=== PATIENT | male | born 1975 | race Caucasian/White ===

== ENCOUNTER 2021-04-23 14:49 | Emergency (ER) | payer OTHER ==
[~2021-04-23] VITALS: Ht 170.2 cm; Wt 78.0 kg
[~2021-04-23 14:49] MED LIST: ALLEGRA30 MG PO; AMOXICILLIN 50500 M1 PO
[2021-04-23 15:33] LABS: ABSOLUTE EOSINOPHILS 0.1 thou/uL (0.0-0.7); ABSOLUTE LYMPHOCYTES 0.9 thou/uL (0.8-5.3); ABSOLUTE MONOCYTES 0.3 thou/uL (0.0-1.2); ABSOLUTE NEUTROPHILS 2.3 thou/uL (1.6-8.1); BASOPHILS 0.8 %; EOSINOPHILS 1.7 %; HEMATOCRIT 46.4 % (42.0-52.0); HEMOGLOBIN 15.9 gm/dL (14.0-18.0); LYMPHOCYTES 25.3 %; MCH 29.8 pg (26.0-34.0); MCHC 34.1 g/dL (28.0-37.0); MCV 87.3 fL (80.0-100.0); MONOCYTES 7.2 %; NUCLEATED RBCS 0 /100WBC; PLATELET COUNT* 147 thou/uL (150-400); RBC 5.32 mil/uL (4.50-6.00); RDW-CV 13.5 % (10.5-14.5); WBC 3.6 thou/uL (4.0-11.0)
[2021-04-23 15:37] LABS: CALCIUM 8.2 mg/dL (8.5-10.1); POTASSIUM 3.6 mmol/L (3.5-5.1)
[2021-04-23 15:47] LABS: ALBUMIN 3.6 g/dL (3.4-5.0); MAGNESIUM 2.2 mg/dL (1.8-2.4); TOTAL BILIRUBIN 0.7 mg/dL (<0.1-1.0); TOTAL PROTEIN 7.2 g/dL (6.4-8.2)
[2021-04-23] MEDS ORDERED: FLEXERIL PO (17:58)
[2021-04-23] MEDS ORDERED: VENTOLIN HFA 1818 GM INH (17:59)
[2021-04-23 18:25] VITALS: BP 136/85
--- NOTE | 2021-04-24 09:04 | EKG ---
[place] [address] ELECTROCARDIOGRAM REPORT Name: IVA URBAN Room: [facility]#: [id number] Admission: 04/23/21 Attend Phys: Discharge: 04/23/21 Date of : 75 Date of Service: 04/23/21 1500 Report #: [id number] THIS REPORT FOR: //name// [facility] ED Test Date: 2021-04-23 Test Time: 15:00:26 Pat Name: IVA URBAN Department: Room: Gender: [employer] Set Up Operator: [facility] : 1975 Requested By: Amisha Yanez Order Number: [id number] MD: Cy Cox Measurements Intervals Gray Rate: 89 P: 53 OK: 112 QRS: 69 QRSD: 86 T: 46 QT: 356 QTc: 434 Interpretive Statements Sinus rhythm Borderline short OK interval Compared to ECG 03/12/2008 00:43:30 No significant changes Electronically Signed On 04-24-2021 9:03:48 CDT by Cy Cox [email or web address] <ELECTRONICALLY SIGNED> By: Cy Cox MD, [facility] 04/24/21902 1500 1500 Cy Cox MD, [facility] /EPI
== END 2021-04-23 18:26 | disposition home or self-care (01) ==
LOC: M.ERS 14:49
PROVIDERS: Nurse Practitioner Family
DX: U07.1 COVID-19 (principal); R42 Dizziness and giddiness; Z98.890 Other specified postprocedural states; Z90.49 Acquired absence of other specified parts of digestive tract; Z88.6 Allergy status to analgesic agent